=== PATIENT | female | born 1960 | race Caucasian/White ===

== ENCOUNTER 2019-07-02 10:47 | Outpatient (CLI) | payer OTHER | END 2019-07-02 10:49 | disposition home or self-care (01) | LOC: MAMO-SONO 10:47 | DX: Z12.31 Encounter for screening mammogram for malignant neoplasm of breast (principal); Z87.898 Personal history of other specified conditions; N60.11 Diffuse cystic mastopathy of right breast; N60.12 Diffuse cystic mastopathy of left breast; N95.0 Postmenopausal bleeding ==

== ENCOUNTER 2020-05-03 13:27 | Outpatient (CLI) | payer OTHER | END 2020-05-03 13:42 | disposition home or self-care (01) | LOC: NUCLEAR 13:27 | PROVIDERS: ATTEND Obstetrics & Gynecology | DX: M81.0 Age-related osteoporosis without current pathological fracture (principal) ==

== ENCOUNTER 2020-08-16 13:52 | Outpatient (CLI) | payer OTHER | END 2020-08-16 14:01 | disposition home or self-care (01) | LOC: MAMO-SONO 13:52 | PROVIDERS: ATTEND Obstetrics & Gynecology | DX: Z12.31 Encounter for screening mammogram for malignant neoplasm of breast (principal); N64.59 Other signs and symptoms in breast ==

== ENCOUNTER 2023-08-13 11:31 | Outpatient (CLI) | payer OTHER | END 2023-08-13 11:47 | disposition home or self-care (01) | LOC: MAMO-SONO 11:31 | PROVIDERS: ATTEND Student in an Organized Health Care Education/Training Program | DX: N60.11 Diffuse cystic mastopathy of right breast (principal); N60.12 Diffuse cystic mastopathy of left breast ==

== ENCOUNTER 2023-08-13 12:48 | Outpatient (CLI) | payer OTHER | END 2023-08-13 12:50 | disposition home or self-care (01) | LOC: NUCLEAR 12:48 | PROVIDERS: ATTEND Student in an Organized Health Care Education/Training Program | DX: M81.0 Age-related osteoporosis without current pathological fracture (principal) ==

== ENCOUNTER 2024-08-06 08:14 | Outpatient (CLI) | payer OTHER | END 2024-08-06 08:24 | disposition home or self-care (01) | LOC: MAMO-SONO 08:14 | PROVIDERS: ATTEND General Practice | DX: N64.9 Disorder of breast, unspecified (principal); Z12.31 Encounter for screening mammogram for malignant neoplasm of breast ==